=== PATIENT | male | born 1955 ===

== ENCOUNTER 2016-06-24 10:45 | Emergency (ER) | payer MEDICAID, OTHER ==
[~2016-06-24] VITALS: Ht 170.2 cm; Wt 115.9 kg
[~2016-06-24 10:45] MED LIST: ACET-97 PO; AMLO10TA3 PO; CARV12.5 PO; CLOP75TA3 PO; FUR20 PO; HYDR-4003 PO; LOSA100T29 PO; POTA10TA38 PO
[2016-06-24 10:48] VITALS: BP 180/94; PULSE 72; RESP 12; O2SAT 97
--- NOTE | 2016-06-24 10:53 | ED.REPORT ---
HPI-Abd Pain M 40 and Over Date of Service Jun 24, 2016 ED Provider: The patient is a 61 year old male with history of multiple hernia repairs, who presents to the emergency department concerned he may have another hernia. The patient first noticed this after he changed his daughter's tire. He has pain to his left mid abdomen. He reports difficulty sleeping due to the pain. He has experienced some nausea and diarrhea. His symptoms are similar to previous hernias. He denies vomiting, fever or chills. Nursing Notes Stated Complaint: ABDOMINAL PAIN Chief Complaint: Male Abdominal Pain Nursing Notes Reviewed: Yes Allergies: Coded Allergies: Penicillins (Verified Allergy, Severe, RASH, 04/05/14) celecoxib (Verified Allergy, Severe, RASH, 04/05/14) lisinopril (Verified Allergy, Severe, COUGH, 04/05/14) meloxicam (Verified Allergy, Severe, RASH, LIP & EYELID SWELLING, SCRATCHY THROAT, 04/05/14) naproxen (Unverified Allergy, Severe, RASH, 04/05/14) adhesive tape (Verified Allergy, Intermediate, BLISTER, 04/05/14) avocado (Verified Allergy, Mild, HIVES, LIPS SWELL, 04/05/14) peanut (Verified Allergy, Mild, HIVES, LIPS SWELL, 04/05/14) strawberry (Verified Allergy, Mild, HIVES, LIPS SWELL, 04/05/14) lactose (Verified Adverse Reaction, Severe, AVOIDS ALL DAIRY PRODUCTS, ) Scheduled Acetaminophen (Acetaminophen) 500 Mg Tablet 500-1,000 MG PO Q6HRS PRN Amlodipine (Amlodipine) 10 Mg Tablet 10 MG PO DAILY Carvedilol (Coreg) 12.5 Mg Tablet 12.5 MG PO BID Clopidogrel Bisulfate (Plavix) 75 Mg Tablet 75 MG PO DAILY Losartan Potassium (Losartan Potassium) 100 Mg Tablet 100 MG PO DAILY Potassium Chloride (Potassium Chloride) 10 Meq Tab.er.prt 10 MEQ PO DAILY TAKE WITH FOOD Scheduled PRN Hydrocodone-Acetaminophen 5-325 mg (Hydrocodone-Acetaminophen 5-325 mg) 1 Each Tablet 1 TABLET PO Q4H PRN PRN For Pain General Time Seen by MD: 10:52 Chief Complaint Abdominal pain Hx Obtained From: Patient Arrived By: Walk-in Sudden in Onset?: No Onset Occurred: 4 days ago Symptom Duration: Since onset Progression since Onset: Constant, Gradually worsening Location: : Abdomen upper Quality: Painful Radiation: : Does not radiate Severity: Current: Moderate Severity: Maximum: Severe Recent Healthcare: No recent doctor visit, No recent hospitalization Similar Sx Previous: Yes Past Medical History Past Medical History Hx of previous stroke on Plavix Hypertension Asthma CHF Hx parotid duct stones Past Surgical History Cholecystectomy, 7 hernia repairs, bilateral knee replacement, cervical spine fusion. 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 Physical Exam Initial Vital Signs Vital Signs (First) Date Time Temp Pulse Resp B/P Pulse Ox O2 Delivery O2 Flow Rate FiO2 06/24/16 10:48 36.4 72 12 180/94 97 Room Air Initial VS: Reviewed Head / Eyes: Atraumatic, Normocephalic, PERRL ENT: Mucous membranes moist, Conjunctiva normal, No scleral icterus Neck: Supple, Non-tender, Full range of motion Lymphatic: No lymphadenopathy Extremities: Vascular intact, Neuro intact, No swelling, No tenderness Skin: Warm, Dry, No cyanosis Neurologic: Alert, Oriented, Nonfocal Psychiatric: Mood/affect normal, Behavior normal, Normal thought content General/Constitutional: Awake, Alert Respiratory / Chest: Atraumatic, Breath sounds NL, Breath sounds = bilat, No respiratory distress, No rales, No rhonchi, No wheezing Cardiovascular: Heart rate NL, Regular rhythm, Heart sounds NL, Peripheral circulation NL Abdomen: Soft, No guarding, No rebound, BS normoactive, No distention Tenderness in the upper abdomen just to the left of midline with some subcutaneous thickening, this is unclear whether this represents scar tissue or a hernia. No obvious large palpable hernia defect. Back: Atraumatic, Inspection NL, Non-tender, No midline vertebral tend Interpretation & Diagnostics Interpretation & Diagnostics: IMPRESSION: Nonreducible bowel containing hernia seen involving the anterior abdominal wall just superior to the previously placed surgical mesh. If indicated CT could be performed. Dictated by: Brett DALAL Interpreted: Shin Diaz MD on 06/24/2016 at 12:40 Lab Results Interpretation Result Diagram: 06/24/16 1225 06/24/16 1225 Test 06/24/16 12:25 06/24/16 12:47 06/24/16 14:26 White Blood Count 7.8th/mm3 (3.8-10.1) Red Blood Count 5.35mil/mm3 (4.40-5.80) Hemoglobin 14.8g/dL (13.8-17.2) Hematocrit 44.9% (41.0-50.0) Mean Corpuscular Volume 83.9fL (81-100) Mean Corpuscular Hemoglobin 27.7pg (27.0-35.0) Mean Corpuscular Hemoglobin Concent 33.0% (32.0-37.0) Red Cell Distribution Width 13.4% (12.3-15.4) Platelet Count 271bil/L (150-400) Neutrophils (%) (Auto) 67.4% (40-74) Lymphocytes (%) (Auto) 18.8% (14-46) Monocytes (%) (Auto) 7.2% (4-12) Eosinophils (%) (Auto) 6.0% (0-5) Basophils (%) (Auto) 0.5% (0-3) Sodium Level 137mEq/L (134-144) Potassium Level 4.1mEq/L (3.5-5.2) Chloride Level 99mEq/L (97-108) Carbon Dioxide Level 28mmol/L (18-29) Blood Urea Nitrogen 8mg/dL (8-27) Creatinine 0.83mg/dL (0.76-1.27) Estimat Glomerular Filtration Rate 100mL/min (>59) Glucose Level 117mg/dL (60-99) Calcium Level 8.9mg/dL (8.5-10.1) Total Bilirubin 0.6mg/dL (0.0-1.2) Aspartate Amino Transf (AST/SGOT) 30U/L (0-50) Alanine Aminotransferase (ALT/SGPT) 25U/L (0-44) Alkaline Phosphatase 114U/L (25-160) Total Protein 7.8g/dL (6.4-8.4) Albumin 4.2g/dL (3.4-5.0) Hold Carmona Top Tube Received (Received) CT Abd / Pelvis Interpretation IMPRESSION: 1. Small ventral hernia just superior to the prior surgical mash. The neck of the hernia measures 2.6 x 2.1 cm. The hernia contains primarily omental fat, but also small segment of transverse colon. No evidence for bowel obstruction. 2. Hyperdense left renal cortical nodule most likely a cyst. Dictated by: Shin Diaz M.D. on 06/24/2016 at 14:31 Interpretation / Wet Read by: Interpret - Radiologist Re-Eval/Medical Decision Med Decision/Clinical Course I could not initially palpate a hernia however based on ultrasound and there was one that was apparent, patient was seen by surgery who felt that the hernia was not strangulated or incarcerated, and was reducible. Discussed plan with patient who is in agreement. It seems that the patient's pain is intermittent and related to movement and not persistent. Patient will be discharged to follow-up with his primary surgeon for further evaluation. Return precautions given both verbally and on paper. Source of Hx: Old records Time of Eval: 12:02 Re-Evaluation/Progress Note: Discussed plan to page surgery with the patient. Time of Eval: 14:45 Re-Evaluation/Progress Note: The patient is agreeable with discharge. All questions were addressed. Consultation #1: Referral / Consult Name: Gary Mendoza MD Consulted With: Surgeon Requested Call at: 12:03 Call Returned at: 12:12 Outside Installation Machinist: Will see patient, Agrees with eval, Agrees with plan Consultation #2: Referral / Consult Name: Gary Mendoza MD Consulted With: Surgeon Call Returned at: 14:01 Note: Dr. Mendoza examined the patient and feels comfortable with the patient being discharged home with outpatient followup with Dr. Mejia. Consultation #3: Referral / Consult Name: Gary Mendoza MD Consulted With: Surgeon Call Returned at: 15:05 Note: Rediscussed imaging findings and whether or not the patient needs an urgent surgery. Dr. Mendoza does not believe the patient needs an urgent surgery at this time as his symptoms do not seem consistent with an incarcerated or strangulate it hernia and he can be discharged home. Counseled Regarding: Diagnosis, Lab results, Need for follow-up, When/why to return to ED Discharge & Departure Primary Impression: Hernia Disposition: Home Vital Signs - All Vital Signs Date Time Temp Pulse Resp B/P Pulse Ox O2 Delivery O2 Flow Rate FiO2 06/24/16 11:39 67 20 143/80 97 Room Air 06/24/16 10:48 36.4 72 12 180/94 97 Room Air )( All Prior VS Reviewed: Yes Condition: Stable Additional Instructions: Thank you for entrusting us with your care today. You CT scan does show evidence of a hernia. You and the surgeon have agreed that you will followup as an outpatient with Dr. Alexandru Mejia. Please call his office today to schedule an appointment. Please return to the emergency department if you develop increased pain, vomiting, fever, or any other new or concerning symptoms. Referrals: Melly Hirsch MD (PCP) Alexandru Mejia MD [place] Attestation Portions of this note were transcribed by Ana Borja. I, Dr. Erwin personally performed the history, physical exam and medical decision-making; I reviewed and confirmed the accuracy of the information in the transcribed note. Signed by: Marie Yip, 06/24/2016 and [id number]. copies to: Melly Hirsch MD; Alexandru Mejia MD, Timothy S DO Jun 24, 2016 10:53 Ana Borja Jun 24, 2016 10:59
[2016-06-24 11:39] VITALS: BP 143/80; PULSE 67; RESP 20; O2SAT 97
[2016-06-24 12:37] LABS: BASOPHILS % (AUTO) 0.5 % (0-3); MONOCYTES % (AUTO) 7.2 % (4-12); Mean Corpuscular Hemoglobin 27.7 pg (27.0-35.0); Mean Corpuscular Volume 83.9 fL (81-100); NEUTROPHILS % (AUTO) 67.4 % (40-74); Platelet Count 271 bil/L (150-400)
--- NOTE | 2016-06-24 12:44 | DRSVH ---
PROCEDURE: US ABDOMEN, LIMITED ([id number]) INDICATIONS: eval upper abd for incisional hernia TECHNIQUE: Real-time focused scanning was performed of the abdomen, with image documentation. COMPARISON: [facility] Ultrasound, US, ABDOMEN SONOGRAM LIMITED, 05/07/2014, 12:58. FINDINGS: Nonreducible bowel herniation seen involving the anterior abdominal wall just superior to t he previously placed surgical mesh. IMPRESSION: Nonreducible bowel containing hernia seen involving the anterior abdominal wall just supe rior to the previously placed surgical mesh. If indicated CT could be performed. Dictated by: Brett DALAL Interpreted: Shin Diaz MD on 06/24/2016 at 12:40 Approved by: Brett DALAL Interpreted: Shin Diaz MD on 06/24/2016 at 12:42
--- NOTE | 2016-06-24 14:42 | DRSVH ---
PROCEDURE: CT ABDOMEN AND PELVIS WITH CONTRAST ([id number]) INDICATIONS: concern for incisional hernia, based on US TECHNIQUE: After the administration of intravenous contrast, 5 mm thick sections acquired from the diaphragm to the symphysis. 5 mm coronal and sagittal reformats were acquired. For radiation dose reduction, the following was used: automated exposure control, adjustment of mA and/or kV according to patient siz e. COMPARISON: [facility], CT, ABD/PELVIS W/O CON (PNL), 04/20/2014, 16:07. [facility], CT, ABD/PELVIS W/CON (PNL), 03/01/2011, 16:50. FINDINGS: Image quality: Excellent. ABDOMEN: Lung bases: Lung bases are clear. Heart size is normal. Solid organs: Mild hepatic steatosis. Liver and spleen are normal in size and enhancement. Gallblad sintia is surgically absent. Biliary system is non dilated. Pancreas enhances normally. No adrenal no dules. Kidneys demonstrate normal size and enhancement, without hydronephrosis. There is a 1.2 cm l ow-density nodule in the left kidney, probably a cyst. Peritoneum and bowel: Bowel loops demonstrate normal wall thickness and caliber. There are scattere d colonic diverticula. No evidence for active diverticulitis. No free fluid or air. Nodes and vessels: No retroperitoneal or mesenteric adenopathy by size criteria. Aorta and inferior vena cava are normal in size. Miscellaneous: There is a small ventral hernia in superior aspect of the prior surgical repair, conta ining omental fat and a small segment of transverse colon. There is no evidence for colonic obstruct ion. The neck of the hernia measures 2.6 x 2.1 cm. PELVIS: Genitourinary: Bladder wall thickness is normal. Miscellaneous: No inguinal hernias or adenopathy. Bones: No suspicious bony lesions. No vertebral body compression fractures. IMPRESSION: 1. Small ventral hernia at the superior aspect of the prior ventral hernia repair. The neck of the he rnia measures 2.6 x 2.1 cm. The hernia contains primarily omental fat, but also a small segment of tr ansverse colon. No evidence for bowel obstruction. 2. Hyperdense left renal cortical nodule most likely a cyst. 3. Mild diverticulosis. No diverticulitis. Dictated by: Shin Diaz M.D. on 06/24/2016 at 14:31 Transcribed by: MARIA G on 06/24/2016 at 14:42 Approved by: Shin Diaz M.D. on 06/25/2016 at 8:39
[2016-06-24] MEDS ORDERED: HYDR-4003 PO (15:10)
--- NOTE | 2016-06-24 15:39 | CONS ---
[address] [address] CONSULTATION REPORT PATIENT: SELENA HUIZAR : 1955 MR#: [id number] ADMIT: 06/24/2016 JOB ID: [id number] DATE OF SERVICE: 06/24/2016 CHIEF COMPLAINT/IDENTIFICATION: I have been asked by Dr. Erwin to see this 61-year-old man with possible recurrent incisional hernia in the emergency department. The patient had an incisional hernia repaired by Dr. Alexandru Mejia approximately three years ago. He has done well since. Four days ago he was changing his daughter's tire and felt something pop in his left mid epigastrium. This was most painful for the first 24 hours, but has not completely gone away so he came to the emergency department for evaluation. There he was felt to possibly have a recurrent incisional hernia and I was asked to see him. PAST MEDICAL HISTORY: As above: 1. History of hypertension. 2. Asthma. 3. CHF. 4. Parotid duct stones. 5. Cholecystectomy. 6. Bilateral knee replacement. 7. Cervical spine fusion. 8. Multiple incisional hernia repairs. MEDICATIONS: See med list. ALLERGIES: Multiple allergies including PENICILLIN, LISINOPRIL, MELOXICAM, NAPROXEN and MULTIPLE FOODS. SOCIAL HISTORY: Ex-smoker, in recovery from alcohol use. REVIEW OF SYSTEMS: Noncontributory. PHYSICAL EXAMINATION: He is in no acute distress. Vital signs are within normal limits. His pulse is 72. On examination, he seems to have a reducible incisional hernia versus eventration. LABORATORY DATA: White count is normal. Hematocrit is 44. Chemistries are normal. Glucose is 117. Albumin is 4.2. IMAGING: He had an abdominal ultrasound followed by a CT scan. Both the ultrasound and the CT scan have demonstrated a small ventral hernia at the upper portion of the mesh with some fat and transverse colon with no evidence of bowel obstruction. IMPRESSION AND PLAN: I believe that I am able to reduce this incisional hernia. It is nontender, non erythematous and has become less symptomatic over time. We discussed just going ahead and having this repaired in the OR today versus followup with Dr. Mejia and consideration of elective repair versus the possibility of simply leaving this alone if it is relatively asymptomatic. At this point, the patient would like to followup with Dr. Mejia as an outpatient and I think this is medically reasonable. We will discharge him with followup.
[2016-08-05] MEDS ORDERED: ACET-171 PO (14:47)
== END 2016-06-24 15:16 | disposition home or self-care (01) ==
LOC: SED 10:45
DX: K46.9 Unspecified abdominal hernia without obstruction or gangrene (principal); R11.0 Nausea; R19.7 Diarrhea, unspecified; I11.0 Hypertensive heart disease with heart failure; I50.9 Heart failure, unspecified; J45.909 Unspecified asthma, uncomplicated; E73.9 Lactose intolerance, unspecified; Z90.49 Acquired absence of other specified parts of digestive tract; Z87.891 Personal history of nicotine dependence; Z88.0 Allergy status to penicillin; Z88.1 Allergy status to other antibiotic agents; Z88.8 Allergy status to other drugs, medicaments and biological substances; Z91.010 Allergy to peanuts; Z91.018 Allergy to other foods
CPT/HCPCS: 36415; 74177; 76705; 80053; 85025; 86850; 99284; Q9967

== ENCOUNTER 2016-06-28 10:06 | Emergency (ER) | payer MEDICAID, OTHER ==
[~2016-06-28] VITALS: Ht 170.2 cm; Wt 115.9 kg
[~2016-06-28 10:06] MED LIST changes: -FUR20 PO
[2016-06-28 10:08] VITALS: BP 175/89; PULSE 69; RESP 15; O2SAT 98
--- NOTE | 2016-06-28 10:52 | ED.REPORT ---
HPI-General Illness Date of Service Jun 28, 2016 ED Provider: Solomon Stout MD 61-year-old male who presents with chief complaint of hernia pain. He was seen in this department 3 days ago and diagnosed with a ventral hernia by ultrasound and CT scan. Reports that his pain has become slightly worse and more constant over the weekend, that is preventing him from sleeping well. Pain is aggravated by abdominal flexion. Denies fever, chills, malaise, black/tarry stools, constipation. He is out of his pain medication and is unable to get to his primary care provider because of the holiday. Nursing Notes Stated Complaint: HERNIA Chief Complaint: Male Abdominal Pain Nursing Notes Reviewed: Yes Allergies: Coded Allergies: Penicillins (Verified Allergy, Severe, RASH, 04/05/14) celecoxib (Verified Allergy, Severe, RASH, 04/05/14) lisinopril (Verified Allergy, Severe, COUGH, 04/05/14) meloxicam (Verified Allergy, Severe, RASH, LIP & EYELID SWELLING, SCRATCHY THROAT, 04/05/14) naproxen (Unverified Allergy, Severe, RASH, 04/05/14) adhesive tape (Verified Allergy, Intermediate, BLISTER, 04/05/14) avocado (Verified Allergy, Mild, HIVES, LIPS SWELL, 04/05/14) peanut (Verified Allergy, Mild, HIVES, LIPS SWELL, 04/05/14) strawberry (Verified Allergy, Mild, HIVES, LIPS SWELL, 04/05/14) lactose (Verified Adverse Reaction, Severe, AVOIDS ALL DAIRY PRODUCTS, ) Scheduled Acetaminophen (Acetaminophen) 500 Mg Tablet 500-1,000 MG PO Q6HRS PRN Amlodipine (Amlodipine) 10 Mg Tablet 10 MG PO DAILY Carvedilol (Coreg) 12.5 Mg Tablet 12.5 MG PO BID Clopidogrel Bisulfate (Plavix) 75 Mg Tablet 75 MG PO DAILY Losartan Potassium (Losartan Potassium) 100 Mg Tablet 100 MG PO DAILY Potassium Chloride (Potassium Chloride) 10 Meq Tab.er.prt 10 MEQ PO DAILY TAKE WITH FOOD Scheduled PRN Hydrocodone-Acetaminophen 5-325 mg (Hydrocodone-Acetaminophen 5-325 mg) 1 Each Tablet 1 TABLET PO Q4H PRN PRN For Pain oxyCODONE (oxyCODONE) 5 Mg Tablet 5 MG PO Q4H PRN PRN For Pain General Time Seen by MD: 10:51 Chief Complaint Abdominal pain Hx Obtained From: Patient Arrived By: Walk-in Past Medical History Past Medical History Hx of previous stroke on Plavix Hypertension Asthma CHF Hx parotid duct stones Past Surgical History Cholecystectomy, 7 hernia repairs, bilateral knee replacement, cervical spine fusion. 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 Respiratory: Denies dyspnea, cough, shortness of breath, wheezing. Cardiovascular: Denies chest pain, palpitations. Gastrointestinal: Admits abdominal pain. Denies vomiting, diarrhea. Otherwise as noted in HPI. Complete sys rev & neg: except as marked. Physical Exam General: Well appearing, well developed, well nourished, no acute distress. Head: Atraumatic, normocephalic. Eyes: No scleral icterus or injection. No discharge. Vision grossly intact. ENT: Voice clear, hearing grossly intact. Respiratory: Regular rate and rhythm. Breath sounds present, clear to auscultation and equal bilaterally. No respiratory distress. No increased work of breathing, speaks in complete sentences. Cardiovascular: Regular rate and rhythm, without murmur, gallop or rub. No pedal edema. Gastrointestinal: Protuberant abdomen with a large midline scar. Area of tenderness appreciated at superior left margin, no appreciable hernia. No peritoneal signs, guarding or rebound. No changes to the skin over the affected area. Bowel sounds normoactive. Skin: Warm and dry. Neurological: Grossly nonfocal. Psychological: Alert and oriented. Speech appropriate, linear and logical. Behavior appropriate. Vital Signs Vital Signs Date Time Temp Pulse Resp B/P Pulse Ox O2 Delivery O2 Flow Rate FiO2 06/28/16 14:35 36.4 70 16 154/82 98 Room Air 06/28/16 10:08 36.4 69 15 175/89 98 Room Air Initial VS: Reviewed Re-Eval/Medical Decision Med Decision/Clinical Course 1-year-old male with a ventral hernia diagnosed with ultrasound and CT at a previous visit presents for continuing pain. Reports that the pain may be a little worse and more constant. its is aggravated by abdominal flexion. Denies symptoms other than pain. I discussed case with Dr. Daniel Zavala, who met with and examine the patient. He states that he appears unchanged since previous visit. We do not believe his hernia has become incarcerated at this time. He has made arrangements to see a surgeon but they are about a month in the future. We encouraged him to contact surgery department to make arrangements within the next week. I advised acetaminophen for pain and prescribed a small amount of oxycodone for supplemental analgesia. Provided return precautions. Counseled Regarding: Diagnosis Discharge & Departure Primary Impression: Hernia Disposition: Home Discharge Condition All VS Reviewed: Yes Condition: Stable Patient Instructions: Ventral Hernia (ED) Additional Instructions: Evaluation for hernia in the emergency department. History and physical are reassuring that this is unlikely to have become strangulated since you were last seen. I would like for you to be seen by a surgeon quicker than he was scheduled for now. Please contact the surgical department at [phone] and let them know you would like to be seen by someone who will be available sooner , preferably in the next week. In the meantime I suggested taking 1000 mg of Tylenol every 6 hours. I will write a prescription for a small amount of oxycodone which can be taken every 4-6 hours for pain not controlled by the Tylenol. Follow up with your primary care provider if you need additional pain medication. Return to emergency department for new or worsening symptoms including bloody/tarry stools, inability to pass gas/stool, fever, increasing pain, changes to the skin over your hernia. Referrals: Melly Hirsch MD (PCP) EDSupervising Provider for APC: Solomon Stout MD Attestation Portions of this note were transcribed by Jassi Leyva. I, Dr. Stout, personally performed the history, physical exam and medical decision-making; I reviewed and confirmed the accuracy of the information in the transcribed note. Signed by: Marie Quiñonez, 06/28/2016 and *time* Attending Statement Attending attestation: I saw this patient in conjunction with Barrington Herrera PA-C. I agree with the workup, evaluation, treatment and disposition. Solomon Stout MD copies to: Melly Hirsch MD, Beck O MD Jun 28, 2016 10:52 JASSI LEYVA Jun 28, 2016 12:05 Barrington Herrera PA-C Jun 28, 2016 13:15
[2016-06-28] MEDS ORDERED: OXYC5TAB72 PO (14:25)
[2016-06-28 14:35] VITALS: BP 154/82; PULSE 70; RESP 16; O2SAT 98
[2016-08-05] MEDS ORDERED: ACET-171 PO (14:47)
== END 2016-06-28 14:36 | disposition home or self-care (01) ==
LOC: SED 10:06
DX: K46.9 Unspecified abdominal hernia without obstruction or gangrene (principal); I11.0 Hypertensive heart disease with heart failure; I50.9 Heart failure, unspecified; Z86.73 Personal history of transient ischemic attack (TIA), and cerebral infarction without residual deficits; Z90.49 Acquired absence of other specified parts of digestive tract; Z87.891 Personal history of nicotine dependence; Z88.0 Allergy status to penicillin; Z88.1 Allergy status to other antibiotic agents; Z88.8 Allergy status to other drugs, medicaments and biological substances; E73.9 Lactose intolerance, unspecified; Z91.010 Allergy to peanuts

== ENCOUNTER 2016-08-06 12:13 | Inpatient (IN) | payer MEDICAID, OTHER ==
--- NOTE | 2016-08-05 17:34 | PCM.ANEPRE ---
Anesthesia Pre-Op Review Reason for Review: STOP BANG 6 Anesthesia Recommendations: Proceed with Procedure Additional Comments STOP BANG 10/14. Recommend SUKHDEV protocol on day of surgery. Graham Kim MD Aug 05, 2016 17:34
[2016-08-06] VITALS (12 sets, daily range): BP systolic 117–158; BP diastolic 43–74; PULSE 62–73; RESP 15–25; O2SAT 96–100
[~2016-08-06] VITALS: Ht 170.2 cm; Wt 122.1 kg
[2016-08-06] MEDS: Lactated Ringer's 1,000 ML IV SCH ×3 (05:00→16:30)
[2016-08-06] MEDS: Clindamycin Inj 900 MG in IV Premix 1 EACH IV SCH ×2 (06:00→16:30)
[~2016-08-06 12:13] MED LIST changes: +ACET-171 PO; -ACET-97 PO; +OXYC5TAB72 PO; -POTA10TA38 PO
[2016-08-06] MEDS ORDERED: MetoCLOpramide 5 mg/mL 2 mL Inj ONE (12:14)
[2016-08-06] MEDS ORDERED: Propofol 10,000 mCg/mL 20 mL Inj ONE (12:14)
[2016-08-06] MEDS ORDERED: Rocuronium 10 mg/mL 5 mL Inj ONE (12:14)
[2016-08-06] MEDS ORDERED: fentaNYL-PF 50 mCg/mL 2 mL Inj ONE (12:14)
[2016-08-06] MEDS ORDERED: Neostigmine 1 mg/mL 10 mL Inj ONE (12:14)
[2016-08-06] MEDS ORDERED: EPHEDrine/NS 5 mg/mL 5 mL Syringe ONE (12:14)
[2016-08-06] MEDS ORDERED: Glycopyrrolate 0.2 MG/ML 1mL Inj ONE (12:14)
[2016-08-06] MEDS ORDERED: Ondansetron 2 mg/mL 2 mL Inj ONE (12:14)
[2016-08-06] MEDS ORDERED: Dexamethasone 4 mg/mL Inj ONE (12:14)
[2016-08-06] MEDS ORDERED: Clindamycin 900 mg/50 mL D5W Premix IV ONE (12:58)
[2016-08-06] MEDS ORDERED: CHOL10008 PO (13:55)
[2016-08-06] MEDS ORDERED: Lactated Ringer's 500 ML IV PRN (15:57)
[2016-08-06] MEDS ORDERED: Lactated Ringer's 1,000 ML IV SCH (15:57)
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
[2016-08-06] MEDS ORDERED: EPHEDrine Sulfate 50 mg/mL Inj IVPUSH PRN (16:00)
[2016-08-06] MEDS ORDERED: MetoCLOpramide 5 mg/mL 2 mL Inj IVPUSH PRN ×2 (16:00→18:30)
[2016-08-06] MEDS ORDERED: Ondansetron 2 mg/mL 2 mL Inj IVPUSH PRN ×2 (16:00→18:30)
[2016-08-06] MEDS ORDERED: Dexamethasone 4 mg/mL Inj IVPUSH PRN (16:00)
[2016-08-06] MEDS ORDERED: Phenylephrine 10,000 mCg/mL Inj IVPUSH PRN (16:00)
[2016-08-06] MEDS ORDERED: Bupivacaine 0.5%/EPI 50 mL Inj INFILTRATE ONE (16:50)
[2016-08-06] MEDS ORDERED: Ketorolac 15 mg/mL Inj IVPUSH PRN (18:30)
[2016-08-06] MEDS ORDERED: HYDROmorphone 0.5 mg/0.5 mL iSecure Syringe IVPUSH PRN ×2 (18:30)
--- NOTE | 2016-08-06 18:38 | PCM.SURGOP ---
Surgical Operative Report Date of Service: Aug 06, 2016 Pre Operative Diagnosis Recurrent incarcerated incisional hernia, morbid obesity Post Operative Diagnosis Same Procedure: Laparoscopic repair of recurrent incarcerated incisional hernia with mesh Surgeon and Computer Information Systems Instructor: Surgeon: Wilman Yan MD Assistants: Yumiko Hernadez Indication for Procedure 61-year-old man with a body mass index of 42.5, who has undergone multiple prior abdominal wall hernia repairs. His most recent 3 repairs have been small defects, repaired with Ventralex mesh. He had prior laparoscopic repairs with a 20 x 15 cm piece of mesh on both occasions. He recently developed a new tearing sensation in his upper midline abdominal wall. A CT scan was obtained which showed a new hernia at the superior aspect of his prior repairs containing omental fat and a small portion of transverse colon without obstruction. After discussion of risks and benefits, he agreed to proceed with laparoscopic hernia repair with mesh. Findings: The main defect measured 3 cm in diameter, and just superior to this, there were 2 other small holes, so the entire fascial defect measured 4 cm craniocaudal. A repair was performed using the Bard Ventralight mesh with the ECHO positioning system, 10 x 15 cm mesh. Procedure Details After smooth induction of general endotracheal anesthesia, he was placed in the supine position with the left arm tucked, and was prepped and draped in wide sterile fashion. A procedural pause was performed according to the SCOAP checklist, and all were found to be in agreement. Pneumoperitoneum was established with a Veress needle in the left subcostal region without difficulty. Using a 12 mm optical viewing trocar, the abdomen was entered on the left side under visualization. The Veress needle site was inspected, and there were no injuries. The Veress needle was removed. Two additional 5 mm ports were placed on the left abdomen under visualization. Approximately one hour was then spent doing adhesiolysis from the anterior abdominal wall. The majority of the adhesions involved the greater omentum to his prior mesh repairs, but there was a portion of the transverse colon which was adherent to the superior aspect of his old mesh and the fascial defect. Dissection was performed using a combination of electrocautery and sharp dissection. There were some remaining adhesions on the lower abdominal wall, which were left in place, because they did not affect the current repair. Once the fascia was skeletonized at the superior aspect of the abdomen, as well as superior portion of his old mesh, the defects were appreciated. There were a total of 3 defects. The main defect measured 3 cm craniocaudal, measured with a ruler introduced into the abdominal cavity. Just superior to this, there were 2 small defects. The entire distance from 1 fascial edge to the other was 4 cm. The 10 x 15 cm Bard Ventralight mesh was selected with the ECHO positioning system. A spinal needle was used to position it at the center of all 3 fascial defects. The position and was insufflated. The Optifix device was then used to secure the mesh circumferentially to the abdominal wall. Once this was done, trans-fascial sutures were placed using the 18-gauge spinal needle and an inlet closure suture passer in 4 quadrants using 0 Prolene sutures. The inferior suture went through his prior 20 x 15 cm mesh. There was approximately 2-3 cm of mesh overlap. The remainder of the Optifix tacks were then used until the device had been used up. The positioner was removed. The mesh was in excellent position. Hemostasis was adequate. The 12 mm port was removed. Using an inlet closure device with 0 Vicryl suture, the fascia of that site was closed. The 5 mm ports were removed and pneumoperitoneum was released. The skin incisions were closed using running 4-0 Monocryl subcuticular stitches. Steri-Strips and sterile dressings were applied to the sites. At the end of the case all needle and sponge counts were correct 2. The patient was awakened from anesthesia without difficulty, and taken to the recovery room in satisfactory condition, having tolerated the procedure well. Complications There were no periprocedural complications identified. Surgical Specimen Removed: No Specimen sent to Pathology: Not applicable Anesthetic Plan: GA Grafts, Implants: Implants-See Implant Record Output, Estimated Blood Loss: 30 Blood Administration during hearn: No Drains: None Catheters: None copies to: Melly Hirsch MD, Joshua D MD Aug 06, 2016 18:38
[2016-08-06] MEDS: HYDROmorphone 1 mg/mL Inj IVPUSH PRN ×5 (18:50→19:29)
[2016-08-06] MEDS: fentaNYL-PF 50 mCg/mL 2 mL Inj IVPUSH PRN ×3 (18:54→19:10)
--- NOTE | 2016-08-06 19:18 | PCM.ANEP1 ---
Post Anesthesia Phase 1 PACU Phase 1 Assessment Date of Service: Aug 06, 2016 Vital Signs Vital Signs Date Time Temp Pulse Resp B/P Pulse Ox O2 Delivery O2 Flow Rate FiO2 08/06/16 19:10 69 24 123/63 97 Nasal Cannula 3 08/06/16 19:05 69 25 124/58 97 Nasal Cannula 3 08/06/16 19:00 36.2 69 21 120/55 100 Simple Mask 8 08/06/16 18:55 69 25 120/58 100 Simple Mask 8 08/06/16 18:50 69 16 125/62 100 Simple Mask 8 08/06/16 18:45 36 67 16 117/55 100 Simple Mask 8 08/06/16 13:17 36.2 62 16 130/74 97 Room Air Anesthetic Administered: GA Level of Alertness: Awake, talking Pain: No Nausea or Vomiting: No Airway Device: Oralpharangeal Airway Oxygen Delivery: Room Air Lungs: Normal Air Movement Collin Rosenbaum MD Aug 06, 2016 19:18
--- NOTE | 2016-08-06 19:18 | PCM.ANEP2 ---
Post Anesthesia Evaluation ASA/CMS Post Anesthesia VS in Patient's Normal Range?: Yes Resp Stable; Airway Patent?: Yes CV Function & Hydration Stable: Yes Mental Status Recovered?: Yes Pain control Satisfactory?: Yes N/V Control Satisfactory?: Yes Collin Rosenbaum MD Aug 06, 2016 19:18
[2016-08-06] MEDS: HYDROmorphone PCA 0.2 mg/mL 30 mL Inj IV PRN (20:13)
[2016-08-06] MEDS: Dextrose 5% Lactated Ringer's 1,000 ML IV SCH (20:14)
[2016-08-06] MEDS ORDERED: HYDROcodone-APAP 5-325 mg Tablet PO PRN (20:15)
[2016-08-07] VITALS (9 sets, daily range): BP systolic 149–163; BP diastolic 74–84; PULSE 49–76; RESP 16–20; O2SAT 94–100
--- NOTE | 2016-08-07 02:33 | NUR ---
Arrival to unit Arrived to unit from PACU at 1943 via gurney. Patient was sleepy but easy to arouse and was able to ambulate to hospital bed via SBA. Complains of 8/10 abdominal pain. PHP WEBSITE DEVELOPER Dilaudid with standard settings 0.2/10/1.2 has been started and has been managing pain. Denies any CP, SOB or N/V. IV in left arm is patent and is currently infusing D5LR @ 80cc/hr. 3LO2@ via NC is being worn, PROSTHETIC LAB TECHNICIAN applied and pt is maintaining sats > 93%. Tolerating PO fluids. Upon initial assessment anterior lung sounds were slightly diminished, and posteriorly some coarseness was heard. Will continue to monitor, and continue Q1 hour checks.
[2016-08-07] MEDS: HYDROmorphone PCA 0.2 mg/mL 30 mL Inj IV PRN ×3 (03:36→18:12)
[2016-08-07 06:13] LABS: BASOPHILS % (AUTO) 0.1 % (0-3); EOSINOPHILS % (AUTO) 0 % (0-5); MONOCYTES % (AUTO) 3.3 % (4-12); Mean Corpuscular Hemoglobin 28.4 pg (27.0-35.0); Mean Corpuscular Volume 83.5 fL (81-100); NEUTROPHILS % (AUTO) 89.8 % (40-74); Platelet Count 275 bil/L (150-400)
[2016-08-07] MEDS: Dextrose 5% Lactated Ringer's 1,000 ML IV SCH ×2 (07:47→19:40)
--- NOTE | 2016-08-07 09:55 | PROG NOTE ---
[address] [address] PROGRESS NOTE PATIENT: SELENA HUIZAR : 1955 MR#: [id number] ADMIT: 08/06/2016 JOB ID: [id number] DATE: 08/07/2016 PROGRESS NOTE: The patient is postoperative day one incisional hernia repair. He is doing well, though still using intravenous pain medications. He feels that his pain control is adequate, but he is still requiring intensity of the intravenous pain medications. We will look at transition over to oral pain medicine, though I suspect he will be here through at least until tomorrow.
--- NOTE | 2016-08-07 14:17 | NUR ---
Activity/Pain Pt up and oob to the recliner for meals. Pt ambulate the hallway two laps SBA, steady gait. Tolerated activity well. Pain is being controlled at an acceptable level per pt with POINT OF SALE ASSOCIATE. Abdomen is distillation operator but tolerable. Pt is tolerated a general diet and passing gas. Care continues.
[2016-08-08] VITALS (8 sets, daily range): BP systolic 162–187; BP diastolic 81–94; PULSE 71–76; RESP 14–19; O2SAT 94–98
--- NOTE | 2016-08-08 01:32 | NUR ---
Pain Pt reports px 12/16, requested addt'l bolus with + effects. Pt was sleeping on reassessment. Pt states he ambulated today and that has caused increased pain. He is feeling bloated and slight nausea at start of shift and rec'd zofran with + effects. He is passing gas and burping.
[2016-08-08] MEDS: HYDROmorphone PCA 0.2 mg/mL 30 mL Inj IV PRN ×3 (02:26→20:52)
[2016-08-08] MEDS: Dextrose 5% Lactated Ringer's 1,000 ML IV SCH ×2 (05:27→20:27)
--- NOTE | 2016-08-08 14:54 | PROG NOTE ---
[address] [address] PROGRESS NOTE PATIENT: SELENA HUIZAR : 1955 MR#: [id number] ADMIT: 08/06/2016 JOB ID: [id number] DATE: 08/08/2016 Postop day two, incisional hernia repair. He is doing well, still using the IV MASTER CONTROL ENGINEER and tells me that he had a rough night, pain-merino. He has not had a bowel movement since surgery. PHYSICAL EXAMINATION: Vital signs: There are stable, blood pressure is a little bit high at 175/89. His abdomen is soft. His incisions are without sign of infection. LABORATORY: There are no new labs today. IMPRESSION AND PLAN: Doing well. We will try to transition him to oral pain medicine today. We will get him on a stool softener. The gold will be to discharge him home tomorrow if he is tolerating oral pain medication.
[2016-08-08] MEDS: Polyethylene Glycol (PEG) 17 Gm Powder PO SCH (15:59)
--- NOTE | 2016-08-08 16:43 | NUR ---
Pain/BM Patient on HAT FORMING MACHINE OPERATOR Dilaudid and stating pain 6/10. In attempt to wean pt off of HAT FORMING MACHINE OPERATOR to PO pain medications, was noted that pt has taken both Roxycodone and Sweet at home in past, stated that Fabiola more effective. Chau page to surgeon - who changed Sweet order to Roxycodone. Dose given and pt encouraged not to use HAT FORMING MACHINE OPERATOR button unless needed. Pt still c/o pain 6-810 and requiring HAT FORMING MACHINE OPERATOR doses. Chau page to MD again (re: pain and no laxatives) and received increase Fabiola to 10mg PO, hopeful that this will be more effective to wean off of HAT FORMING MACHINE OPERATOR. Pt still without BM, stating flatus (burping frequently as well). Belly round and firm. Encouraging ambulation in hallway (walked two loops) and offered pt prune juice and Miralax dose given. Pt states with increased flatus, belly not so tight/firm, but still no BM. Care continues.
--- NOTE | 2016-08-08 23:06 | NUR ---
Pain control Pt does not want to take his pain pills this evening. He said that he felt that his pain level was "too high" at this time. Pt agrees to turn OFF PIT BOSS at 0600 and take his pain pills. He cont to rate his pain at a 6 consistently. Tolerates diet. Denies nausea. No BM. Passing gas. Will cont to monitor
[2016-08-09 04:36] VITALS: BP 169/93; PULSE 73; RESP 18; O2SAT 97
[2016-08-09 05:43] VITALS: RESP 20; O2SAT 95
--- NOTE | 2016-08-09 05:44 | NUR ---
Pain VOCAL TEACHER turned OFF. Pt given oxycodone x 2 tabs. He rates his pain at an eight and states he is good with a "six" Will monitor for effectiveness
[2016-08-09] MEDS: Dextrose 5% Lactated Ringer's 1,000 ML IV SCH (08:57)
[2016-08-09] MEDS: Polyethylene Glycol (PEG) 17 Gm Powder PO SCH (09:13)
[2016-08-09 13:43] VITALS: BP 175/88; PULSE 72; RESP 18; O2SAT 97
--- NOTE | 2016-08-09 15:05 | NUR ---
GI / pain Pt sitting up in the chair today. States he is more comfortable in the chair than in the bed. Pt reported that he is passing flatus and did have a BM this a.m. Stated the stool was hard (constipation). Pt's pain is controlled with 10 mg PO oxycodone. Awaiting discharge orders.
--- NOTE | 2016-08-09 15:47 | NUR ---
Social Work Note: Screen Note Data& Assessment: EMR reviewed. Patient is a 61 year old male admitted on 08/06/16 for recurrent incisional hernia. Pt has [facility] and [facility] for insurance coverage and sees Melly Euceda MD for primary care. Pt lives alone and is independent at baseline. Pt is currently SBA in her room. No discharge needs identified at this time. SW to continue to follow if any needs arise. Plan: Anticipated discharge home via POV when medically ready. No discharge needs identified at this time. SW to continue to follow if any needs arise. Geraldine Sheth, LUIZA, ACM
--- NOTE | 2016-08-09 16:03 | PCM.PNSURG ---
Subjective Date of Service: Aug 09, 2016 Visit Information: Reason for Visit Recurrent Incisional Hernia Surgery/Surgery Date Post-Op Day #3 Date of Admission: Aug 06, 2016 at 19:51 Hospital Day # Subjective: Eating solid foods with no nausea or vomiting. Bowel movement this morning. Ambulatory in the hallway without assistance. Tolerating pain on oral analgesic. Requesting discharge from the hospital. Postop General: No Complaints Gastrointestinal: Tolerating Oral Feedings, No N/V, Passing Stool Pain Management: PO Postop Activity: Ambulating Independently Objective Vital Sign- Last 8 Hours Date Time Temp Pulse Resp B/P Pulse Ox O2 Delivery O2 Flow Rate FiO2 08/09/16 13:43 36.7 72 18 175/88 97 Room Air Intake and Output- Last 8 Hour 08/09/16 Cumulative From/Thru 07:00 08/05/16 14:48 - 08/09/16 05:37 Intake Total 300 ml 8085 ml Output Total 500 ml 2655 ml Balance -200 ml 5430 ml Intake Oral 300 ml 4072 ml IV Total 4013 ml Output Urine Total 500 ml 2615 ml Estimated Blood Loss 40 ml # Voids 1 # Bowel Movements 0 General: Alert, Cooperative, No Acute Distress Lungs: Clear to Auscultation Heart: Regular Rate/Rhythm Abdomen: Soft, Non-tender, Protuberant SURGICAL WOUND : Wound General Appearence: Steri Strips, Sutures, Intact, No Erythema, No Discharge Neuro: Normal Speech Catheters: None Result Diagram: 08/07/16 0600 08/07/16 0600 Assessment & Plan Impression Primary diagnoses: 1. Recurrent incarcerated incisional hernia 2. Morbid obesity, BMI 42.2 Other diagnoses: 1. Hyperlipidemia 2. Hypertension 3. History of CVA with residual left mild hemiplegia, 2011 Problems: Plan The patient will be discharged to home. He will follow-up in the office with Dr. Yan in 2-3 weeks. Pain Management: Oxycodone copies to: Melly Hirsch MD, Fred H PA-C Aug 09, 2016 16:03
--- NOTE | 2016-08-09 16:07 | PCM.DISURG ---
Surgical Discharge Instruction Date of Service Aug 09, 2016 Dates of Hospitalization Date of Hospital Admission Aug 06, 2016 at 19:51 Providers Admitting Physician: Wilman Yan MD Primary Care Physician: Melly Hirsch MD Attending Physician: Wilman Yan MD Discharge Diagnosis Discharge Diagnosis Primary diagnoses: 1. Recurrent incarcerated incisional hernia 2. Morbid obesity, BMI 42.2 Other diagnoses: 1. Hyperlipidemia 2. Hypertension 3. History of CVA with residual left mild hemiplegia, 2011 Post Operative diagnosis Same Diet Discharge Diet: No restrictions Activity Discharge Activity-General: Be up and about, Balance rest and activity, No driving while taking narcotic Dressing and Incisional Care Dressing Care: Allow Steri Stripes to fall off Hygiene: May shower Follow Up Plan Follow-up Provider (F9): Wilman Yan MD Follow-up appointment: Weeks (2-3) Call your provider for: Fever, Chills, Wound redness, Increasing wound pain, Warmth to touch, Discharge @ incision, pus discharge Ahsan Ansari PA-C Aug 09, 2016 16:07
[2016-08-09] MEDS ORDERED: OXYC5TAB72 PO (16:09)
[2016-08-09] MEDS ORDERED: POLY17PO6 PO (16:09)
--- NOTE | 2016-08-09 16:13 | PCM.DC.SUR ---
Discharge Summary Date of Service: Aug 09, 2016 Date of Hospital Admission: Aug 06, 2016 at 19:51 Date of Operation(s): 08/06/2016 Date of Discharge: 08/09/2016 Diagnosis at Time of Discharge Primary diagnoses: 1. Recurrent incarcerated incisional hernia 2. Morbid obesity, BMI 42.2 Other diagnoses: 1. Hyperlipidemia 2. Hypertension 3. History of CVA with residual left mild hemiplegia, 2011 Problems: Operation Laparoscopic repair of recurrent incarcerated incisional hernia with mesh Brief History and Physical: The patient is a 61-year-old man with a body mass index of 42.5, who has undergone multiple prior abdominal wall hernia repairs. His most recent 3 repairs have been small defects, repaired with Ventralex mesh. He had prior laparoscopic repairs with a 20 x 15 cm piece of mesh on both occasions. He recently developed a new tearing sensation in his upper midline abdominal wall. A CT scan was obtained which showed a new hernia at the superior aspect of his prior repairs containing omental fat and a small portion of transverse colon without obstruction. Consultants: None Hospital Course: The patient was admitted and underwent the above-mentioned operation without complication. Recovery was fairly uneventful. He required parenteral analgesia until his day of discharge. He was able be transitioned to oral analgesic approximately 12 hours prior to discharge. He had a bowel movement on his day of discharge. Pathology: None Disposition: The patient was discharged to home on his third postsurgical day. At the time of discharge he was eating solid foods with no nausea or vomiting, his bowels were working, he was tolerating pain on oral analgesic, he was ambulating without assistance, and his wounds appeared to be healing. Follow-up Plan: He will follow-up in the office with Dr. Yan in 2-3 weeks. Acetaminophen (Acetaminophen) 500 Mg Tablet 500-1,000 MG PO Q6H PRN PRN For Pain (Reported) Amlodipine (Amlodipine) 10 Mg Tablet 10 MG PO DAILY (Reported) Carvedilol (Coreg) 12.5 Mg Tablet 12.5 MG PO BID (Reported) Cholecalciferol (Vitamin D3) (Vitamin D3) 1,000 Unit Tab.chew 1,000 UNIT PO ( Reported) Clopidogrel Bisulfate (Plavix) 75 Mg Tablet 75 MG PO DAILY (Reported) Losartan Potassium (Losartan Potassium) 100 Mg Tablet 100 MG PO DAILY (Reported ) Polyethylene Glycol 3350 (Miralax) 17 Gm Powd.pack 17 GM PO DAILY oxyCODONE (oxyCODONE) 5 Mg Tablet 5 MG PO Q4H PRN PRN For Pain copies to: Melly Hirsch MD, Fred H PA-C Aug 09, 2016 16:13
--- NOTE | 2016-08-09 16:51 | NUR ---
Discharge Pt discharged to home with spouse via private vehicle at 1645 hrs. PIV removed intact. Pain controlled. VSS. All personal possessions sent with pt. Discharge and follow up instructions given to pt and he expressed understanding.
== END 2016-08-09 16:45 | disposition home or self-care (01) | DRG 354 ==
LOC: SAS 12:13 → OSC 19:51
PROVIDERS: ADMIT Student in an Organized Health Care Education/Training Program; ATTEND Student in an Organized Health Care Education/Training Program
PROC: 0WUF4JZ Supplement Abdominal Wall with Synthetic Substitute, Percutaneous Endoscopic Approach (ICD-10-PCS; principal; 2016-08-06 14:15)
DX: K43.0 Incisional hernia with obstruction, without gangrene (principal); Z68.41 Body mass index [BMI] 40.0-44.9, adult; I69.354 Hemiplegia and hemiparesis following cerebral infarction affecting left non-dominant side; I10 Essential (primary) hypertension; E66.01 Morbid (severe) obesity due to excess calories; E78.5 Hyperlipidemia, unspecified

== ENCOUNTER 2017-01-06 11:54 | Emergency (ER) | payer MEDICAID, OTHER ==
[~2017-01-06] VITALS: Ht 170.2 cm; Wt 113.6 kg
[~2017-01-06 11:54] MED LIST changes: +CHOL10008 PO; -HYDR-4003 PO; +POLY17PO6 PO
[2017-01-06 12:00] VITALS: BP 179/87; PULSE 76; RESP 18; O2SAT 97
--- NOTE | 2017-01-06 12:48 | ED.REPORT ---
HPI-Dental/Mouth Prob Date of Service Jan 06, 2017 ED Provider: Jayda Padilla MD The pt is a 61 y/o male w/ a hx of HTN presenting to the ED complaining of tooth pain. He states that he lost a crown a few days ago which is what is causing the pain and giving him a headache. He is also experiencing L cheek swelling. He has tried Tylenol, ice, and salt water w/o relief. Nursing Notes Stated Complaint: ABSCESS TOOTH/LOST CROWN Chief Complaint: Tooth pain Nursing Notes Reviewed: Yes Allergies: Coded Allergies: Penicillins (Verified Allergy, Severe, RASH, 08/06/16) celecoxib (Verified Allergy, Severe, RASH, 08/06/16) latex (Verified Allergy, Severe, ITCHY RASH, 08/06/16) lisinopril (Verified Allergy, Severe, COUGH, 08/06/16) meloxicam (Verified Allergy, Severe, RASH, LIP & EYELID SWELLING, SCRATCHY THROAT, 08/06/16) naproxen (Verified Allergy, Severe, RASH, 08/06/16) adhesive tape (Verified Allergy, Intermediate, BLISTER, 08/05/16) avocado (Verified Allergy, Mild, HIVES, LIPS SWELL, 08/05/16) peanut (Verified Allergy, Mild, HIVES, LIPS SWELL, 08/06/16) strawberry (Verified Allergy, Mild, HIVES, LIPS SWELL, 08/06/16) lactose (Verified Adverse Reaction, Severe, AVOIDS ALL DAIRY PRODUCTS, ) Uncoded Allergies: NSAIDS (Allergy, Severe, FACIAL SWELLING, 08/06/16) ORANGES (Allergy, Unknown, swelling, 08/06/16) Scheduled Amlodipine (Amlodipine) 10 Mg Tablet 10 MG PO DAILY Amoxicillin (Amoxicillin) 500 Mg Tablet 500 MG PO TID Carvedilol (Coreg) 12.5 Mg Tablet 12.5 MG PO BID Clopidogrel Bisulfate (Plavix) 75 Mg Tablet 75 MG PO DAILY Losartan Potassium (Losartan Potassium) 100 Mg Tablet 100 MG PO DAILY Polyethylene Glycol 3350 (Miralax) 17 Gm Powd.pack 17 GM PO DAILY Scheduled PRN Acetaminophen (Acetaminophen) 500 Mg Tablet 500-1,000 MG PO Q6H PRN PRN For Pain oxyCODONE (oxyCODONE) 5 Mg Tablet 5 MG PO Q4H PRN PRN For Pain oxyCODONE-Acetaminophen 5-325 mg (oxyCODONE-Acetaminophen 5-325 mg) 1 Each Tablet 1 TAB PO Q6H PRN PRN For Pain Miscellaneous Medications Cholecalciferol (Vitamin D3) (Vitamin D3) 1,000 Unit Tab.chew 1,000 UNIT PO General Time Seen by MD: 12:19 Chief Complaint Tooth pain Hx Obtained From: Patient Arrived By: Walk-in Symptom Duration: Since onset Recent Healthcare: No recent doctor visit, No recent hospitalization Past Medical History Past Medical History Hx of previous stroke on Plavix Hypertension Asthma CHF Hx parotid duct stones Past Surgical History Cholecystectomy, 7 hernia repairs, bilateral knee replacement, cervical spine fusion. Family History Noncontributory Smoking History Former Smoker Social History Alcohol Use: In recovery Drug Use: THC Other Social History: Local resident Ambulatory Status Independent Review of Systems L cheek swelling Ears / Nose / Throat: Reports: Toothache Complete sys rev & neg: except as marked. Neurologic: Reports: Headache Physical Exam Initial Vital Signs Vital Signs (First) Date Time Temp Pulse Resp B/P Pulse Ox O2 Delivery O2 Flow Rate FiO2 01/06/17 12:00 37.1 76 18 179/87 97 Room Air Initial VS: Reviewed General/Constitutional: Well-developed, Well-nourished Respiratory: Breath sounds normal, Clear to auscultation, No respiratory distress Cardiovascular: Regular rate & rhythm, Heart sounds normal, Intact distal pulses Extremities: Vascular intact, Neuro intact, No swelling, No tenderness Neurologic: Alert, Oriented, Nonfocal Psychiatric: Mood/affect normal, Behavior normal, Normal thought content ENT: Airway patent, Mucous membranes moist Tooth #11 and 12 are both broken off at the root Neck: Atraumatic, Supple, Full range of motion Head / Eyes: PERRL, No photophobia L maxillary fullness consistent w/ dental infections Re-Eval/Medical Decision Source of Hx: Old records Counseled Regarding: Diagnosis, Need for follow-up, When/why to return to ED Discharge & Departure Primary Impression: Pain, dental Additional Impression: Dental infection Disposition: Home Discharge Condition All VS Reviewed: Yes Condition: Stable Additional Instructions: Thank for you entrusting us with your care today. I recommend you using the dental wax I spoke to you about to help cover the exposed teeth. I recommend you using the dental wax during the day and 1 Tylenol and 1 Percocet together to help you sleep during the night. During the day you may also take 2 Tylenol at a time for the pain but be sure to avoid taking more than 8 pills total over the course of a day. Please take the amoxicillin 3 times a day for the next 7 days to help with the infection. Make sure you are at the walk in dental clinic early on Tuesday. Please return to the emergency department if you experience any new or worsening symptoms. I hope you feel better soon. Referrals: Melly Hirsch MD (PCP) Scribe Attestation Portions of this note were transcribed by Ellis Anderson. I, Dr. Padilla personally performed the history, physical exam and medical decision-making; I reviewed and confirmed the accuracy of the information in the transcribed note. copies to: Melly Hirsch MD, Shawna L MD Jan 06, 2017 12:48 Ellis Anderson Jan 06, 2017 13:00
[2017-01-06] MEDS ORDERED: AMOX500T2 PO (12:57)
[2017-01-06] MEDS ORDERED: OXYC1TAB24 PO (12:57)
== END 2017-01-06 13:30 | disposition home or self-care (01) ==
LOC: SED 11:54
DX: K08.89 Other specified disorders of teeth and supporting structures (principal); K04.7 Periapical abscess without sinus; R51 Headache; I11.0 Hypertensive heart disease with heart failure; I50.9 Heart failure, unspecified; J45.909 Unspecified asthma, uncomplicated; E73.9 Lactose intolerance, unspecified; Z86.73 Personal history of transient ischemic attack (TIA), and cerebral infarction without residual deficits; Z90.49 Acquired absence of other specified parts of digestive tract; Z98.890 Other specified postprocedural states; Z96.653 Presence of artificial knee joint, bilateral; Z87.891 Personal history of nicotine dependence; Z88.0 Allergy status to penicillin; Z88.6 Allergy status to analgesic agent; Z88.8 Allergy status to other drugs, medicaments and biological substances; Z91.010 Allergy to peanuts; Z91.048 Other nonmedicinal substance allergy status; Z91.040 Latex allergy status; Z91.018 Allergy to other foods